=== PATIENT | male | born 1975 | race Two or more races ===

== ENCOUNTER → 2016-09-30 | Outpatient (CLI) | payer BC ==
--- NOTE | 2016-09-30 11:45 | US ---
Testicular Sonography with Color and Spectral Doppler Analysis Clinical History: 40-year-old male who noted a left scrotal lump after self self examination 1 week a go with some tenderness. ICD-10 Diagnostic Code: N50.9. Technique: A linear 12 MHz transducer was used to sonographically evaluate each hemiscrotum. Color an d spectral Doppler analysis was also performed. Comparison Study: None. Findings: Right Hemiscrotum: The testis is normal in size, shape, and position, measuring 3.4 x 2.8 x 1.6 cm. I ntratesticular arterial and venous flow are documented. The resistive index is 0.69. There is no test icular mass, hydrocele, varicocele, and the epididymis appears normal. Left Hemiscrotum: As on the contralateral side, the testis appears normal, measuring 3.3 x 2.6 x 1.9 cm. Intratesticular vascular flow is documented. The resistive index is 0.63. There is no hydrocele. The epididymis is normal. There is a left-sided varicocele with serpentine-shaped vascular structures noted, measuring up to 4.2 mm in diameter. Impression: 1. Normal sonographic appearance of each testis. 2. Left-sided varicocele.
== END ==
LOC: CIMAGING 08:12
PROVIDERS: ATTEND Family Medicine
DX: N50.9 Disorder of male genital organs, unspecified (principal); I86.1 Scrotal varices
CPT/HCPCS: 76870-PO